=== PATIENT | female | born 1975 | race Caucasian/White ===

== ENCOUNTER → 2016-12-24 | Outpatient (CLI) | payer BC ==
[2014-07-26 01:11] VITALS: BP 100/61
[~2016-12-24] MED LIST: GUAIFENESIN AC120 ML PO; ORTHO-CYCLEN 351 TA1 PO; ZITHROMAX Z PA250 MG PO
== END ==
LOC: MAMMO 11:35
DX: Z12.31 Encounter for screening mammogram for malignant neoplasm of breast (principal)
CPT/HCPCS: G0202

== ENCOUNTER → 2017-01-08 | Outpatient (CLI) | payer BC ==
[2014-07-26 01:11] VITALS: BP 100/61
== END ==
LOC: MAMMO 13:45
DX: Z12.31 Encounter for screening mammogram for malignant neoplasm of breast (principal)

== ENCOUNTER → 2018-11-09 | Outpatient (CLI) | payer BC ==
[2014-07-26 01:11] VITALS: BP 100/61
== END ==
LOC: MAMMO 14:26
DX: Z12.31 Encounter for screening mammogram for malignant neoplasm of breast (principal)

== ENCOUNTER → 2019-01-17 | Outpatient (CLI) | payer BC ==
[2014-07-26 01:11] VITALS: BP 100/61
== END ==
LOC: RAD 09:53
DX: R10.2 Pelvic and perineal pain (principal); R10.9 Unspecified abdominal pain

== ENCOUNTER → 2020-12-27 | Outpatient (CLI) | payer BC | LOC: MAMMO 08:23 | DX: Z12.31 Encounter for screening mammogram for malignant neoplasm of breast (principal); N64.89 Other specified disorders of breast ==

== ENCOUNTER → 2021-01-07 | Outpatient (CLI) | payer BC | LOC: MAMMO 01-03 13:00 | DX: N64.89 Other specified disorders of breast (principal) ==

== ENCOUNTER → 2023-02-16 | Outpatient (CLI) | payer BC | LOC: MAMMO 07:00 | DX: N64.89 Other specified disorders of breast (principal) ==

== ENCOUNTER → 2024-03-15 | Outpatient (CLI) | payer BC | LOC: MAMMO 07:26 | DX: R92.8 Other abnormal and inconclusive findings on diagnostic imaging of breast (principal) ==